=== PATIENT | female | born 1940 | race Caucasian/White ===

== ENCOUNTER 2016-06-24 14:16 | Emergency (ER) | payer OTHER, MEDICARE ==
[~2016-06-24] VITALS: Ht 162.6 cm; Wt 84.0 kg
[2016-06-24] MEDS ORDERED: ROXICODONE5 MG PO (16:43)
[2016-06-24 17:15] VITALS: BP 160/88
== END 2016-06-24 17:16 | disposition home or self-care (01) ==
LOC: EME 14:16 → EXP 14:16
DX: S42.211A Unspecified displaced fracture of surgical neck of right humerus, initial encounter for closed fracture (principal); S42.251A Displaced fracture of greater tuberosity of right humerus, initial encounter for closed fracture; W01.198A Fall on same level from slipping, tripping and stumbling with subsequent striking against other object, initial encounter; Y92.009 Unspecified place in unspecified non-institutional (private) residence as the place of occurrence of the external cause; Z87.891 Personal history of nicotine dependence
CPT/HCPCS: 73000; 73030; 73060; 99281; 99284; J3010